=== PATIENT | female | born 1990 | race Caucasian/White ===

== ENCOUNTER 2016-08-16 15:04 | Emergency (ER) | payer OTHER ==
[~2016-08-16] VITALS: Ht 160 cm; Wt 103.0 kg
[~2016-08-16 15:04] MED LIST: KLN5 PO; MTR600X PO; OXYC5TAB PO; ZLF50 PO
[2016-08-16 15:08] VITALS: TEMP 36.4; Ht 160 cm; Wt 103.0 kg
[2016-08-16] MEDS ORDERED: OXYCODONE HCL IR 5 MG TAB (IMMEDIATE RELEASE) PO STA (15:59)
[2016-08-16] MEDS ORDERED: ONDANSETRON 4MG OD TAB PO STA (15:59)
--- NOTE | 2016-08-16 16:42 | DIAGNOSTIC IMAGING REPORT ---
HEAD CT NONCONTRAST CT DOSE: 788.63 mGycm HISTORY: Pain THOMSON/facial/neck pain TECHNIQUE: Multiaxial CT images of the head were performed without the use of intravenous contrast. Comparison: None. Findings: The paranasal sinuses and mastoid air cells are clear. The calvarium and skull base are intact. The ventricles and sulci are within normal limits. There is no mass, hematoma, midline shift, or acute infarct. Impression: No acute intracranial abnormality. Electronically signed by: Andrew Cortes M.D. 08/16/2016 4:40 PM
--- NOTE | 2016-08-16 16:47 | DIAGNOSTIC IMAGING REPORT ---
MAXILLOFACIAL CT CT DOSE: 551.90 mGycm HISTORY: Pain THOMSON/facial/neck pain TECHNIQUE: Multiaxial CT images of the maxillofacial region were performed and reformatted in the coronal plane without the use of contrast. COMPARISON: None. FINDINGS: The visualized cervical spine, skull base, pterygoid plates, nasal bones, lamina papyracea, orbital floors, mandible, and zygomatic arches are intact. No fractures. The orbits are unremarkable. IMPRESSION: No fractures within the maxillofacial region. Electronically signed by: Andrew Cortes M.D. 08/16/2016 4:45 PM
--- NOTE | 2016-08-16 16:49 | DIAGNOSTIC IMAGING REPORT ---
CERVICAL SPINE CT CT DOSE: 425.04 mGycm HISTORY: Fall. THOMSON/facial/neck pain TECHNIQUE: Multiaxial CT images of the cervical spine were performed and reformatted in the sagittal and coronal plane without the use of contrast. COMPARISON: Cervical spine CT 09/01/2014. FINDINGS: No fractures. No subluxation. Prevertebral soft tissues and the C1-C2 interval are intact. No pneumothorax. IMPRESSION: No fractures within the cervical spine. Electronically signed by: Babak Frazier M.D. 08/16/2016 4:47 PM
--- NOTE | 2016-08-16 17:42 | DIAGNOSTIC IMAGING REPORT ---
THORACIC SPINE 3 VIEWS HISTORY: Fall. Back pain COMPARISON: None. FINDINGS: There is no fracture. No subluxation. Disc spaces are preserved. Mild dextroscoliosis which could be positional. IMPRESSION: No fracture or subluxation within the thoracic spine. Electronically signed by: Babak Frazier M.D. 08/16/2016 5:40 PM
--- NOTE | 2016-08-16 17:43 | DIAGNOSTIC IMAGING REPORT ---
LUMBAR SPINE 5 VIEWS HISTORY: Back pain COMPARISON: Lumbar spine 05/22/2010. FINDINGS: There is no fracture. No subluxation. Disc spaces are preserved. IMPRESSION: No fracture or subluxation within the lumbar spine. Electronically signed by: Babak Frazier M.D. 08/16/2016 5:41 PM
--- NOTE | 2016-08-16 17:45 | DIAGNOSTIC IMAGING REPORT ---
RIGHT RIBS UNILATERAL WITH PA CHEST CLINICAL HISTORY: R posterior rib pain Right COMPARISON STUDY: Chest 04/15/2016. FINDINGS: The lungs are clear. The heart is normal in size. No pleural effusions. No pneumothorax. No acute rib fractures. IMPRESSION: No acute rib fractures. No pneumothorax. Electronically signed by: Babak Frazier M.D. 08/16/2016 5:43 PM
[2016-08-16] MEDS ORDERED: PROMETHAZINE HCL 25 MG TAB PO STA (18:21)
[2016-08-16] MEDS ORDERED: TRAMADOL HCL 50 MG TAB PO STA (18:21)
[2016-08-16] MEDS ORDERED: TRAM-10 PO (18:25)
[2016-08-16] MEDS ORDERED: PROM25TA9 PO (18:25)
[2016-08-16 18:44] VITALS: BP 116/70; PULSE 68; O2SAT 96
--- NOTE | 2016-08-16 19:26 | EMERGENCY ROOM VISIT NOTE ---
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 The patient reports a loss of consciousness, and does not recall anything until she was inside and her was wiping off her face. The patient reports persistent and worsening generalized headache, neck pain and right-sided back pain. She also complains of pain radiating into bilateral thighs. She denies any history of chronic back pain or prior back injuries. The patient denies any paresthesias, numbness or burning of the upper extremities or lower extremities. Tetanus immunization is up-to-date. The patient rates her discomfort an 8 out of 10. Review of Systems HEENT: Reports blurred vision and tinnitus. Denies difficulty swallowing or oral lesions. PULMONARY: Denies cough, shortness of breath, sputum production or hemoptysis. CARDIOVASCULAR: Denies chest pain, palpitations, dyspnea on exertion, orthopnea or peripheral edema. GASTROINTESTINAL: Denies diarrhea, constipation, nausea, vomiting, or abdominal pain. GENITOURINARY: Denies dysuria, frequency, urgency or nocturia. NEUROLOGIC: Denies history of epilepsy, CVA, TIA or chronic headaches. MUSCULOSKELETAL: Denies history of joint tenderness/swelling. SKIN: Denies rashes or lesions. PSYCHIATRIC: Denies history of depression or mental illness. ENDOCRINE: Denies history of diabetes or thyroid disorders. Past Medical/Surgical History Medical Problems: (1) CHRONIC PANCREATITIS (2) Fibromyalgia (3) Migraine (4) Panic attack (5) PERSONAL HISTORY OF URINARY CALCULI (6) REFLUX ESOPHAGITIS (7) Tubal occlusion Surgical Problems: (1) Cholecystectomy (2) H/O dilation and curettage (3) H/O wisdom tooth extraction (4) History of esophagogastroduodenoscopy (EGD) (5) S/P tubal ligation (6) Status post breast reduction Family History FHx: gallbladder disease Kidney stones Social History Smoking Status: Never Smoker Alcohol Use: none Drug Use: none Marital Status: Housing Status: lives with family Occupation Status: employed Current/Historical Medications Scheduled Ranitidine (Zantac), 150 MG PO BID Sertraline Hcl (Zoloft), 200 MG PO DAILY Scheduled PRN Promethazine Hcl (Phenergan), 25 MG PO Q6H PRN for Nausea Tramadol (Ultram), 1-2 TAB PO Q4H PRN for Pain Allergies Coded Allergies: Metronidazole (Verified Allergy, Severe, VOMITING, SOB, 04/15/16) Prednisone (Verified Allergy, Intermediate, HIVES, 04/15/16) Hydrocodone (Verified Adverse Reaction, Intermediate, NIGHTMARES, 04/15/16) Physical Exam Vital Signs Date Time Temp Pulse Resp B/P Pulse Ox O2 Delivery O2 Flow Rate FiO2 08/16/16 18:44 68 116/70 96 08/16/16 15:08 36.4 73 17 148/99 97 Room Air Physical Exam CONSTITUTIONAL: Healthy and well nourished. Alert and oriented X 3 with positive affect. Patient appears in moderate discomfort from her headache. GCS 15. HEENT: Examination shows abrasions to the right forehead and right cheek. She has generalized tenderness to palpation of the right zygomatic arch and periorbital region. No raccoon's eyes or Torres sign, hemotympanum or epistaxis. Pupils equal, round and reactive. EOMs intact without signs of entrapment or obvious discomfort. OROPHARYNX: No obvious dental trauma or other intraoral lacerations. NECK: The patient has generalized tenderness to palpation of the right cervical musculature. She does not have any focal tenderness to the central cervical spine. RESPIRATORY: Clear to auscultation bilaterally with no wheezing, crackles, rhonchi or stridor. Deep breathing does not worsen her discomfort. CARDIOVASCULAR: Regular rate and rhythm with no murmurs, rubs or gallops. GASTROINTESTINAL: Bowel sounds present in all quadrants. Soft and nontender to palpation. MUSCULOSKELETAL: Examination shows generalized tenderness to palpation all away from the right trapezius through the right thoracolumbar paraspinous muscle, right ribs and right buttock. Negative logroll. Negative straight leg raise bilaterally. No tenderness to palpation. Extremities. Distal pulses are intact. INTEGUMENTARY: No rash or other significant dermatologic conditions noted. NEUROLOGIC: No focal neurologic deficits noted. Upper and lower extremities are sensory intact. Medical Decision & Procedures ER Provider Diagnostic Interpretation: My interpretation of thoracolumbar x-rays does not show any evidence for compression fractures or subluxations. My interpretation of right rib x-rays with a PA chest view does not show any obvious acute rib fractures, pneumothorax or other acute intrathoracic findings. Noncontrast CT of the head, cervical spine and facial bones also did not show any acute fractures or intracranial bleed. Radiologist reports were also reviewed. Medications Administered Medications (Trade) Dose Ordered Sig/Chano Route Start Time Stop Time Status Last Admin Dose Admin Oxycodone HCl (Roxicodone Immediate Rel Tab) 5 mg NOW STAT PO 08/16/16 15:59 08/16/16 16:02 DC 08/16/16 16:06 5 MG Ondansetron HCl (Zofran Odt) 4 mg NOW STAT PO 08/16/16 15:59 08/16/16 16:02 DC 08/16/16 16:07 4 MG Tramadol HCl (Ultram Tab) 50 mg ONE STAT PO 08/16/16 18:21 08/16/16 18:22 DC 08/16/16 18:37 50 MG Promethazine HCl (Phenergan Tab) 25 mg NOW STAT PO 08/16/16 18:21 08/16/16 18:22 DC 08/16/16 18:36 25 MG ED Course Patient history and physical exam were performed. Nurse's notes were reviewed. Vital signs were reviewed and were normal. GCS 15. The patient did request some pain for pain, and was administered OxyIR 5 mg and Zofran [address] of the head, facial bones and cervical spine were normal. X- rays of the thoracolumbar spine and right ribs with a PA chest were also normal. The patient was advised of her normal findings. She was complaining of a persistent headache and nausea. She was administered Ultram 50 mg and Phenergan 25 mg, and received prescriptions for both medications. She was encouraged to rest and avoid strenuous activities. A concussion handout was provided. She was encouraged to alternate ibuprofen and Tylenol for additional baseline pain relief. 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 Return to the emergency department for any progressively worsening symptoms. The patient was happy with plan of care, voiced understanding of all discharge instructions, and rated her pain a 4 out of 10 at the conclusion of my exam. Medical Decision Impression Primary Impression: Concussion with loss of consciousness Additional Impressions: Facial abrasion, Back pain, Fall Departure Information Prescriptions Promethazine Hcl (Phenergan) 25 Mg Tab 25 MG PO Q6H Y for Nausea, #20 TAB Prov: Maxi Taveras PA 08/16/16 Tramadol (Ultram) 50 Mg Tab 1-2 TAB PO Q4H Y for Pain, #20 TAB For Initial Treatment Prov: Maxi Taveras PA 08/16/16 Referrals Danelle Pink D.O. (PCP) Patient Instructions A Signature Page, [facility]
[2016-08-16] MEDS ORDERED: ZNTT/150 PO (22:17)
[2016-10-19] MEDS ORDERED: MTR600X PO (14:20)
[2016-10-19] MEDS ORDERED: PRT40 PO (14:20)
[2017-07-15] MEDS ORDERED: SERT1TAB68 PO (16:52)
== END 2016-08-16 18:45 | disposition home or self-care (01) ==
LOC: C.EDB 15:05 → C.EDC 18:45
DX: S06.0X1A Concussion with loss of consciousness of 30 minutes or less, initial encounter (principal); S00.81XA Abrasion of other part of head, initial encounter; W17.89XA Other fall from one level to another, initial encounter; K21.0 Gastro-esophageal reflux disease with esophagitis; M54.9 Dorsalgia, unspecified; M79.7 Fibromyalgia

== ENCOUNTER 2016-10-18 10:58 | Observation (INO) | payer OTHER ==
[~2016-10-18] VITALS: Ht 160 cm; Wt 103.4 kg
[~2016-10-18 10:58] MED LIST changes: -KLN5 PO; -MTR600X PO; -OXYC5TAB PO; +PROM25TA9 PO; +SERT1TAB68 PO; +TRAM-10 PO; -ZLF50 PO; +ZNTT/150 PO
[2016-10-18] MEDS ORDERED: SODIUM CHLORIDE 0.9% 1000ML 1,000 ML IV STA (11:29)
[2016-10-18] MEDS ORDERED: ONDANSETRON INJ 2 MG/ML 2 ML VIAL IV STA (11:29)
[2016-10-18] MEDS ORDERED: MoRPHine SULFATE 10 MG/ML CARP/VIAL IV STA ×2 (11:29→13:32)
[2016-10-18] MEDS ORDERED: DiphenhydrAMINE HCL 50 MG/ML VIAL IV STA (11:29)
[2016-10-18 12:13] LABS: BASO % 0.4 %; BASO ABS # 0.03 K/uL (0-0.2); COMPLETE YES; EOS % 0.8 %; HEMATOCRIT 42.4 % (37-47); IG% 0.1 %; LYMPH % 36.9 %; LYMPH ABS # 2.64 K/uL (1.2-3.4); MEAN CELL VOLUME 83.3 fL (80-100); MEAN CORPUSCULAR HEMOGLOBIN 28.3 pg (25-34); MEAN PLATELET VOLUME 10.8 fL (7.4-10.4); MONO % 4.5 %; NEUT % 57.3 %; PLATELET COUNT 301 K/uL (130-400); RED BLOOD COUNT 5.09 M/uL (4.2-5.4); WHITE BLOOD COUNT 7.15 K/uL (4.8-10.8)
--- NOTE | 2016-10-18 12:30 | DIAGNOSTIC IMAGING REPORT ---
SINGLE VIEW CHEST CLINICAL HISTORY: Atypical chest pain. FINDINGS: An AP, portable, upright chest radiograph is compared to study dated 04/15/2016. The cardiomediastinal silhouette is unremarkable. The lungs and pleural spaces are clear. No pneumothorax is seen. The bony thorax is grossly intact. IMPRESSION: No active disease in the chest. Electronically signed by: Johnnie Goel M.D. 10/18/2016 12:29 PM Dictated Date/Time: 10/18/2016 12:29 PM
[2016-10-18 12:41] LABS: ALT/SGPT 72 U/L (12-78); BLOOD UREA NITROGEN 6 mg/dl (7-18); BUN/CREATININE RATIO 8.6 (10-20); CALCIUM 8.7 mg/dl (8.5-10.1); CARBON DIOXIDE 19 mmol/L (21-32); CHLORIDE 107 mmol/L (98-107); CREATININE 0.73 mg/dl (0.60-1.20); GLUCOSE 75 mg/dl (70-99); SODIUM 138 mmol/L (136-145)
[2016-10-18] MEDS ORDERED: ACET-1256 PO (12:44)
--- NOTE | 2016-10-18 12:46 | DIAGNOSTIC IMAGING REPORT ---
HEAD CT NONCONTRAST CT DOSE: 614.27 mGy.cm HISTORY: Headache. Evaluate for hemorrhage or pathology TECHNIQUE: Multiaxial CT images of the head were performed without the use of intravenous contrast. Automated exposure control was utilized for this study. Comparison: Head CT 08/16/2016. Findings: The paranasal sinuses and mastoid air cells are clear. The calvarium and skull base are intact. The ventricles and sulci are within normal limits. There is no mass, hematoma, midline shift, or acute infarct. Impression: No acute intracranial abnormality. Electronically signed by: Babak Frazier M.D. 10/18/2016 12:45 PM Dictated Date/Time: 10/18/2016 12:41 PM
[2016-10-18 13:01] LABS: ALKALINE PHOSPHATASE 172 U/L (45-117)
[2016-10-18] MEDS ORDERED: KETOROLAC TROMETHAMINE 30 MG/ML VIAL IV STA (13:23)
[2016-10-18 13:24] LABS: POTASSIUM 4.2 mmol/L (3.5-5.1)
[2016-10-18 13:32] LABS: AST/SGOT 65 U/L (15-37)
[2016-10-18 13:56] LABS: LYME DISEASE AB IGG NEG (NEG); LYME DISEASE AB IGM NEG (NEG)
[2016-10-18 14:37] VITALS: O2SAT 96; Ht 160 cm; Wt 103.4 kg
[2016-10-18] MEDS ORDERED: ONDANSETRON INJ 2 MG/ML 2 ML VIAL IV PRN (14:45)
[2016-10-18] MEDS ORDERED: ACETAMINOPHEN 325 MG TAB PO PRN (14:45)
[2016-10-18] MEDS ORDERED: IV FLUIDS COMPLETED PRN (15:00)
[2016-10-18] MEDS ORDERED: IBUP1CAP9 PO (15:38)
[2016-10-18] MEDS ORDERED: NRN100 PO (15:39)
[2016-10-18 15:42] VITALS: O2SAT 96
[2016-10-18] MEDS ORDERED: GABAPENTIN 100 MG CAP PO PRN (15:45)
[2016-10-18] MEDS ORDERED: SUMATRIPTAN SUCCINATE 6 MG/0.5 ML VIAL SQ PRN (15:45)
[2016-10-18] MEDS ORDERED: PANTOprazole INJ 40 MG in SYRINGE 0 ML IV STA (15:49)
[2016-10-18] MEDS ORDERED: SUMATRIPTAN SUCCINATE 6 MG/0.5 ML VIAL SQ STA (15:50)
[2016-10-18] MEDS: SODIUM CHLORIDE 0.9% 1000ML 1,000 ML IV SCH (15:58)
--- NOTE | 2016-10-18 16:12 | History and Physical ---
History & Physical Date & Time of Service: Oct 18, 2016 at 15:40 Chief Complaint: Sandritae Primary Care Physician: Danelle Pink D.O. History of Present Illness Source: patient, clinic records This is a 26 y/o female with PMH of migraines, fibromyalgia, anxiety, who presents to the ED with intractable migraine headache. Pt reports onset of THOMSON 2 days ago. She states it felt like her previous migraines except the onset was more sudden. She describes pressure behind her eyes radiating to the occipital area. She reports associated aura of flushing, visual floaters, diplopia, and tired feeling. She reports photophobia, phonophobia, nausea, multiple episodes of vomiting, poor PO intake. She rates pain 8/10 and did not improve with Tylenol and ibuprofen at home. She was given morphine total of 14 mg and Toradol in ER without improvement. Patient reports hx of chronic migraines 1-2x per month lasting 1 week. She reports previously being on Imitrex injections for 3 years which initially worked but was stopped after it was no longer working. Pt has not been seen by a neurologist. She reports having MRI at some point in the past. Pt believes current episode is triggered by anxiety and weather change. She reports a lot of stressors at home including problems with her house. She reports panic attack in April 2016 after her tubal ligation and was seen by psychiatry and set up with a counselor at [facility]. She was placed on Zoloft which is currently at 200 mg a day. The Zoloft helped but still having significant anxiety. Denies suicidal ideation. Pt also reports chest pain central non-radiating described as heaviness which is constant since last night. She reports having similar pain in the past associated with migraine. She notes chronic palpitations associated with anxiety. She notes chronic short term memory issues. 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 She notes dry cough for 1-2 months. States reflux is uncontrolled on Zantac. Denies focal weakness or numbness, fevers, nasal congestion, SOB, DESAI, abdominal pain, change in chronic diarrhea), dysuria, frequency. Past Medical/Surgical History Medical Problems: (1) CHRONIC PANCREATITIS Status: Chronic (2) Fibromyalgia Status: Chronic (3) Migraine Status: Chronic (4) AVE on CPAP Status: Chronic (5) Panic attack Status: Chronic (6) PERSONAL HISTORY OF URINARY CALCULI Status: Chronic (7) REFLUX ESOPHAGITIS Status: Chronic Surgical Problems: (1) Cholecystectomy Status: Chronic (2) H/O dilation and curettage Status: Chronic (3) H/O wisdom tooth extraction Status: Chronic (4) History of esophagogastroduodenoscopy (EGD) Status: Chronic (5) S/P tubal ligation Status: Chronic (6) Status post breast reduction Status: Chronic Family History Blood clots SISTER FH: suicide FATHER FHx: gallbladder disease Kidney stones Social History Smoking Status: Never Smoker Alcohol Use: none Drug Use: none Marital Status: Housing status: lives with family Occupational Status: employed Immunizations History of Influenza Vaccine: No History of Tetanus Vaccine?: No History of Pneumococcal: No History of Hepatitis B Vaccine: Yes Multi-Drug Resistant Organisms History of MDRO: No Allergies Coded Allergies: Metronidazole (Verified Allergy, Severe, VOMITING, SOB, 10/18/16) Prednisone (Verified Allergy, Intermediate, HIVES, 10/18/16) Hydrocodone (Verified Adverse Reaction, Intermediate, NIGHTMARES, 10/18/16) Home Medications Scheduled Ranitidine (Zantac), 150 MG PO BID Sertraline Hcl (Zoloft), 100 MG PO BID Scheduled PRN Acetaminophen (Tylenol), 1,000 MG PO UD PRN for Pain Gabapentin (Gabapentin), 100 MG PO TID PRN for Pain Ibuprofen (Ibuprofen), 200 MG PO UD PRN for Pain Review of Systems Ten point ROS performed with pertinent positives and negatives noted in HPI. Physical Exam Vital Signs Date Time Temp Pulse Resp B/P Pulse Ox O2 Delivery O2 Flow Rate FiO2 10/18/16 14:37 96 Room Air 10/18/16 13:59 10/18/16 13:47 87 17 132/79 96 Room Air 75 138/97 77 115/103 10/18/16 12:17 72 18 125/89 97 Room Air 10/18/16 12:12 74 10/18/16 11:01 36.9 67 18 120/79 100 Room Air General Appearance: no apparent distress, + obese, + pertinent finding (alert cooperative 26 y/o female, anxious and tearful, appears uncomfortable due to headache) Head: normocephalic, atraumatic Eyes: normal inspection, PERRL, EOMI ENT: hearing grossly normal, pharynx normal, + pertinent finding (sinuses nontender) Neck: supple, + pertinent finding (no meningial sign on exam) Respiratory/Chest: lungs clear, normal breath sounds, no respiratory distress Cardiovascular: regular rate, rhythm, no murmur Abdomen/GI: normal bowel sounds, non tender, soft Extremities/Musculoskelatal: no calf tenderness, no pedal edema Neurologic/Psych: health information specialist II-XII nml as tested, no motor/sensory deficits, alert, oriented x 3, + pertinent finding (anxious, tearful) Skin: normal color, warm/dry Diagnostics Laboratory Results Results Past 24 Hours Test 10/18/16 11:45 10/18/16 11:58 10/18/16 12:06 10/18/16 12:55 Range/Units Influenza Type A Antigen Neg for Influ A NEG Influenza Type B Antigen Neg for Influ B NEG White Blood Count 7.15 4.8-10.8 K/uL Red Blood Count 5.09 4.2-5.4 M/uL Hemoglobin 14.4 12.0-16.0 g/dL Hematocrit 42.4 37-47 % Mean Corpuscular Volume 83.3 80-100 fL Mean Corpuscular Hemoglobin 28.3 25-34 pg Mean Corpuscular Hemoglobin Concent 34.0 32-36 g/dl Platelet Count 301 130-400 K/uL Mean Platelet Volume 10.8 7.4-10.4 fL Neutrophils (%) (Auto) 57.3 % Lymphocytes (%) (Auto) 36.9 % Monocytes (%) (Auto) 4.5 % Eosinophils (%) (Auto) 0.8 % Basophils (%) (Auto) 0.4 % Neutrophils # (Auto) 4.09 1.4-6.5 K/uL Lymphocytes # (Auto) 2.64 1.2-3.4 K/uL Monocytes # (Auto) 0.32 0.11-0.59 K/uL Eosinophils # (Auto) 0.06 0-0.5 K/uL Basophils # (Auto) 0.03 0-0.2 K/uL RDW Standard Deviation 42.9 36.4-46.3 fL RDW Coefficient of Variation 14.1 11.5-14.5 % Immature Granulocyte % (Auto) 0.1 % Immature Granulocyte # (Auto) 0.01 0.00-0.02 K/uL Erythrocyte Sedimentation Rate 14 0-21 mm/hr Sodium Level 138 136-145 mmol/L Potassium Level 4.2 3.5-5.1 mmol/L Chloride Level 107 98-107 mmol/L Carbon Dioxide Level 19 21-32 mmol/L Anion Gap 12.0 3-11 mmol/L Blood Urea Nitrogen 6 7-18 mg/dl Creatinine 0.73 0.60-1.20 mg/dl Est Creatinine Clear Calc Drug Dose 133.0 ml/min Estimated GFR () 130.8 Estimated GFR (Non- 112.9 BUN/Creatinine Ratio 8.6 10-20 Random Glucose 75 70-99 mg/dl Calcium Level 8.7 8.5-10.1 mg/dl Total Bilirubin 0.5 0.2-1 mg/dl Direct Bilirubin < 0.1 0-0.2 mg/dl Aspartate Amino Transf (AST/SGOT) 65 15-37 U/L Alanine Aminotransferase (ALT/SGPT) 72 12-78 U/L Alkaline Phosphatase 172 45-117 U/L Total Creatine Kinase 52 26-192 U/L Creatine Kinase MB < 0.5 0.5-3.6 ng/ml Creatine Kinase MB Ratio 0-3.0 Total Protein 7.7 6.4-8.2 gm/dl Albumin 3.7 3.4-5.0 gm/dl Lipase 144 73-393 U/L Bedside D-Dimer 346 0-450 ng/mlFEU Bedside Troponin I 0.000 0-0.045 ng/ml Lyme Disease IgG Antibody NEG NEG Lyme Disease IgM Antibody NEG NEG Diagnostic Radiology HEAD CT NONCONTRAST CT DOSE: 614.27 mGy.cm HISTORY: Headache. Evaluate for hemorrhage or pathology TECHNIQUE: Multiaxial CT images of the head were performed without the use of intravenous contrast. Automated exposure control was utilized for this study. Comparison: Head CT 08/16/2016. Findings: The paranasal sinuses and mastoid air cells are clear. The calvarium and skull base are intact. The ventricles and sulci are within normal limits. There is no mass, hematoma, midline shift, or acute infarct. Impression: No acute intracranial abnormality. SINGLE VIEW CHEST CLINICAL HISTORY: Atypical chest pain. FINDINGS: An AP, portable, upright chest radiograph is compared to study dated 04/15/2016. The cardiomediastinal silhouette is unremarkable. The lungs and pleural spaces are clear. No pneumothorax is seen. The bony thorax is grossly intact. IMPRESSION: No active disease in the chest. EKG NSR, 63 bpm, no ST or T wave abnormality Impression Assessment and Plan INTRACTABLE MIGRAINE CT head- no acute findings No improvement with morphine and Toradol in ER Consult neurology; d/w Lizzy Lou; appreciate input Check MRI brain- WNL Not able to give IV steroids due to prednisone allergy of hives Avoid Topamax due to hx of kidney stone Will try sumatriptan injection; may have second dose 1 hour later if no relief PRN ibuprofen, Tylenol, Zofran Consult pain management ATYPICAL CHEST PAIN Associated with anxiety Troponin negative; EKG unremarkable ANXIETY Uncontrolled Denies suicidal ideation Continue Zoloft Consult mental health for further recommendations GERD Uncontrolled Continue ranitidine Add PPI AVE Continue CPAP DVT PROPHYLAXIS SCD's FULL CODE Patient seen in collaboration with Dr. Pantoja. Please see her addendum. ADDENDUM: I have seen and examined the patient and have discussed the case with the provider above. I agree with the assessment and plan as stated. Brain MRI was normal. Appreciate Neurology team's assessment of this patient as she will likely need continued care as an outpatient. Imitrex and Ibuprofen ordered PRN. There is a very large somatic manifestation of stress contributing here with multiple ongoing issues at home that provokes anxiety in her to include financial issues from recently needed home repairs, post- anxiety that was severe and is better, but still present after 18 months, severe self-described separation anxiety from her mother, issues with her that are normal but there, a poor self image with difficulty losing weight, etc. We have asked for psych's input as well as she has been on Zoloft 200mg PO daily and speaks regularly with a Wireless Engineer, however, is still quite affected with anxiety. May need to adjust treatment plan. No reported SI. Admitted for pain management overnight. Italia Pantoja DO Hospitalist Level of Care Med/Surg Advanced Directives Existing Living Will: No Existing Power of Primer Boxer: No Resuscitation Status FULL RESUSCITATION VTE Prophylaxis VTE Risk Assessment Done? Y/N: Yes Risk Level: Low Given or contraindicated: Treatment not indicated Social Service Consult None Apply
[2016-10-18 16:33] VITALS: BP 102/68; PULSE 65; TEMP 36.4; O2SAT 97
[2016-10-18] MEDS ORDERED: LORAZEPAM 2 MG/ML 1 ML VIAL IM STA (16:49)
--- NOTE | 2016-10-18 17:15 | PROGRESS NOTE ---
DATE: 10/18/2016 SUBJECTIVE: Yudith is 26 years old who was just admitted to the hospital and will be on Dr. Browning's service. We were called by Sally Howell who was evaluated her in the Emergency Room, she subsequently been admitted to the floor late in the afternoon. Lizzy Lou and I reviewed the case, which indicates long history of migraine, fibromyalgia, anxiety, panic disorder, obstructive sleep apnea, reflux esophagitis, status post cholecystectomy, status post D\T\C and with apparent steroid allergies producing hives. She has been on Neurontin on an as-needed basis for headaches and apparently also has sertraline on board started recently for some panic attacks. She takes ibuprofen as needed for pain, acetaminophen, and ranitidine. ALLERGIES: SHE HAS ALLERGIES TO PREDNISONE, WHICH CAUSES HIVES; HYDROCODONE, WHICH CAUSES NIGHTMARES AND METRONIDAZOLE, WHICH CAUSES SEVERE VOMITING. PAST MEDICAL HISTORY: She also has a history of a renal stone. CAT scan has been negative. Exam has not shown much, but she appears to possibly be in some status migrainosis or at least must appear ill enough to warrant hospitalization for pain management. Triptans are going to be used, but at this point because of the change in the headache, we are going to recommend she have an MRI scan and will assess her again tomorrow. It is possible that she may need some valproic acid. Topamax seems to be off the table, Neurontin does not seem tobeworking although the way she is taking it is unusual and overall I think we are just going to have to reassess things tomorrow to see how things play out overnight. Frst we have to be sure this is not a new structural issue, which I doubt. Again, we will provide more complete evaluation and recommendations tomorrow. DINORAH
[2016-10-18] MEDS ORDERED: GADAVIST IV PRN (18:15)
--- NOTE | 2016-10-18 18:24 | DIAGNOSTIC IMAGING REPORT ---
MRI OF THE BRAIN WITHOUT AND WITH IV CONTRAST CLINICAL HISTORY: headache r/o intracranial abnormality mental status change COMPARISON STUDY: No previous studies for comparison. TECHNIQUE: Utilizing a 1.5 Ankita magnet and dedicated coil, multiplanar, multiecho imaging of the brain was performed pre and postcontrast administration. IV administration of 8 mL of Gadavist contrast was uneventful. FINDINGS: Diffusion-weighted images show no acute ischemic process. Signal characteristics are unremarkable throughout. No evidence for abnormal postcontrast enhancement. The ventricular system is midline. Internal artery canals are unremarkable. Sella and parasellar regions are unremarkable. IMPRESSION: Normal study. Electronically signed by: Andrew Cortes M.D. 10/18/2016 6:23 PM Dictated Date/Time: 10/18/2016 6:18 PM
[2016-10-18] MEDS: SERTRALINE HCL 100 MG TAB PO SCH (19:54)
[2016-10-18] MEDS: RANITIDINE HCL 150 MG TAB PO SCH (19:54)
[2016-10-18] MEDS: IBUPROFEN 600 MG TAB PO PRN (19:56)
[2016-10-18] MEDS ORDERED: TOPIRAMATE 50 MG TAB PO SCH (21:00)
--- NOTE | 2016-10-18 21:34 | EMERGENCY ROOM VISIT NOTE ---
ED Visit Note First contact with patient: 11:04 CHIEF COMPLAINT: Migraine headache and chest pain. HISTORY OF PRESENT ILLNESS: Ms. Theodore is a 26year-old white female who ambulates into the ED accompanied by her complaining of a migraine headache and chest pain. She reports a acute onset of a severe migraine headache that started approximately 36 hours ago. The pain is constant and increasing in severity. This is the worst headache of the life, but similar to her previous migraines except for the abrupt onset. 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 Currently she describes the headache as a pressure sensation/pain in the behind the eyes. She rates the pain a 8/10. The pain is radiating posteriorly in the occipital area and then down the neck. She rates her discomfort 8/10. She reports taking ibuprofen, Tylenol and a prescribed unspecified migraine medicine prescribed by her family doctor without relief. There is been associated generalized body aches, light sensitivity, floaters, double vision, sensations of feeling hot and diaphoresis, nausea and vomiting, lightheadedness with and without head movement, body tremors and thoracic back pain; she reports the vision changes and the nausea/vomiting are normal for her migraine headaches. Additionally she reports that over the last few days she seems to have poor memory in that she goes to work and comes home but does not remember going to work, she dresses her daughter for school and does not remember what she is wearing. Additionally she is complaining of chest pain that started last evening approximately 14 hours ago. Since that time her pain has been constant. She describes her discomfort as if someone is sitting on her chest. She rates her discomfort 4/10. Pain is nonradiating. She has not taken any specific medications for this prior to arrival at the hospital. Associated with her pain she reports she has been feeling like her heart is racing and intermittently skipping beats, lower extremity cramping. She denies martha fevers, skin eruptions, skin color changes, neck stiffness, upper respiratory tract symptoms, cough, wheezing, orthopnea, dependent edema, previous clots, claudication, recent surgery/inactivity/extended travel, tobacco and estrogen use, abdominal pain, diarrhea, constipation, rectal bleeding, black/tarry stools, urinary symptoms, flank pain, hematuria, vaginal bleeding, vaginal discharge. REVIEW OF SYSTEMS: All body systems were reviewed with the patient and were found to be negative unless noted above otherwise. PAST MEDICAL HISTORY: Migraine headaches, GERD, hiatal hernia, gallbladder disease, fibromyalgia, status post breast reduction, tubal ligation and cholecystectomy. CURRENT MEDICATIONS: ALLERGIES TO MEDICATIONS: Vicodin, Flagyl, prednisone. SOCIAL HISTORY: Patient is currently employed; she feels safe in her home environment; she denies tobacco and alcohol use. PHYSICAL EXAM: Vital Signs: Date Time Temp Pulse Resp B/P Pulse Ox O2 Delivery O2 Flow Rate FiO2 10/18/16 14:37 96 Room Air 10/18/16 13:59 10/18/16 13:47 87 17 132/79 96 Room Air 75 138/97 77 115/103 10/18/16 12:17 72 18 125/89 97 Room Air 10/18/16 12:12 74 10/18/16 11:01 36.9 67 18 120/79 100 Room Air GENERAL: 26 year-old white female in moderate distress due to pain, nontoxic- appearing, afebrile and hemodynamically stable. NEUROLOGIC: Awake, alert and oriented to person place and time. Answering questions appropriately and following commands. Cranial nerves II-XII grossly intact. No focal neurologic deficits noted. Romberg test negative. Pronator drift test negative. Normal heel ruffin test. Normal rapidly any movements of the hands. Able to spell backwards but refuses to count backwards. Good short- term and long-term recall. SKIN: Warm, dry and pink. No rashes, lesions or soft tissue trauma noted. HEENT: Normocephalic, atraumatic. Skull: No bony tenderness, swelling or ecchymosis. No raccoon's eyes or garcia signs. No drainage in the ears and air ; no hemotympanum. No tenderness or erythema over the frontal or maxillary sinuses. PERRLA. EOMI without nystagmus. Funduscopic examination is unremarkable with a normal-appearing optic disc and no signs of increased intracranial pressure. Sclera is white and conjunctiva pink without drainage. No nasal drainage or audible congestion. Oral cavity is moist and pink. No signs of obvious dental disease. Airway is patent. Speech is clear and normal. No JVD. Trachea midline. BACK: No tenderness over the cervical, thoracic or lumbar bony spine. No tenderness or palpable spasm throughout the paraspinous muscles. Full range of motion of cervical spine in flexion and extension. No meningeal symptoms or nuchal rigidity. CHEST: Lungs are clear to auscultation and equal bilaterally with symmetrical chest wall movements. No tenderness, deformity or ecchymosis of the chest wall. No increased respiratory effort or rate. HEART: Regular rate and rhythm with no murmurs, rubs or gallops. ABDOMEN: Soft and nontender with bowel sounds present in all quadrants; no rigidity, rebound tenderness, organomegaly or guarding. EXTREMITIES: No tenderness over the shoulders, elbows, forearms, wrists, hands, hips, knees, lower legs or ankles. Full range of motion of all joints. 4/5 muscle strength in all movements of the shoulder, elbow, forearm, hips, knees and ankles. All distal neurovascular statuses are intact and equal bilaterally. ED COURSE: Patient is assessed as noted above. Laboratory Testing: Test 10/18/16 11:45 10/18/16 11:58 10/18/16 12:06 10/18/16 12:55 Range/Units Influenza Type A Antigen Neg for Influ A NEG Influenza Type B Antigen Neg for Influ B NEG White Blood Count 7.15 4.8-10.8 K/uL Red Blood Count 5.09 4.2-5.4 M/uL Hemoglobin 14.4 12.0-16.0 g/dL Hematocrit 42.4 37-47 % Mean Corpuscular Volume 83.3 80-100 fL Mean Corpuscular Hemoglobin 28.3 25-34 pg Mean Corpuscular Hemoglobin Concent 34.0 32-36 g/dl Platelet Count 301 130-400 K/uL Mean Platelet Volume 10.8 7.4-10.4 fL Neutrophils (%) (Auto) 57.3 % Lymphocytes (%) (Auto) 36.9 % Monocytes (%) (Auto) 4.5 % Eosinophils (%) (Auto) 0.8 % Basophils (%) (Auto) 0.4 % Neutrophils # (Auto) 4.09 1.4-6.5 K/uL Lymphocytes # (Auto) 2.64 1.2-3.4 K/uL Monocytes # (Auto) 0.32 0.11-0.59 K/uL Eosinophils # (Auto) 0.06 0-0.5 K/uL Basophils # (Auto) 0.03 0-0.2 K/uL RDW Standard Deviation 42.9 36.4-46.3 fL RDW Coefficient of Variation 14.1 11.5-14.5 % Immature Granulocyte % (Auto) 0.1 % Immature Granulocyte # (Auto) 0.01 0.00-0.02 K/uL Erythrocyte Sedimentation Rate 14 0-21 mm/hr Sodium Level 138 136-145 mmol/L Potassium Level 4.2 3.5-5.1 mmol/L Chloride Level 107 98-107 mmol/L Carbon Dioxide Level 19 21-32 mmol/L Anion Gap 12.0 3-11 mmol/L Blood Urea Nitrogen 6 7-18 mg/dl Creatinine 0.73 0.60-1.20 mg/dl Est Creatinine Clear Calc Drug Dose 133.0 ml/min Estimated GFR () 130.8 Estimated GFR (Non- 112.9 BUN/Creatinine Ratio 8.6 10-20 Random Glucose 75 70-99 mg/dl Calcium Level 8.7 8.5-10.1 mg/dl Total Bilirubin 0.5 0.2-1 mg/dl Direct Bilirubin < 0.1 0-0.2 mg/dl Aspartate Amino Transf (AST/SGOT) 65 15-37 U/L Alanine Aminotransferase (ALT/SGPT) 72 12-78 U/L Alkaline Phosphatase 172 45-117 U/L Total Creatine Kinase 52 26-192 U/L Creatine Kinase MB < 0.5 0.5-3.6 ng/ml Creatine Kinase MB Ratio 0-3.0 Total Protein 7.7 6.4-8.2 gm/dl Albumin 3.7 3.4-5.0 gm/dl Lipase 144 73-393 U/L Bedside D-Dimer 346 0-450 ng/mlFEU Bedside Troponin I 0.000 0-0.045 ng/ml Lyme Disease IgG Antibody NEG NEG Lyme Disease IgM Antibody NEG NEG Head CT: Was reviewed by myself and read by the radiologist showing no acute cranial abnormalities or skull fractures. Chest X-Rays: Were read by myself and the radiologist showing no acute infiltrates, effusions or pneumothorax. Normal heart silhouette. EKG: Was read by myself and reviewed with Dr. Sanabria; shows normal sinus rhythm with ventricular rate of 63 bpm. Normal axis, normal complexes. No acute ST changes indicating ischemia, or infarction. This was compared to previous from September 2015 in no acute changes were noted. Patient was hydrated with normal saline and she received 4 mg of Zofran IV, a total of 14 mg of morphine IV, 30 mg of Toradol IV, 50 mg of Benadryl IV. Patient was reassessed multiple times to her stay in the emergency department. Patient's case was reviewed with Dr. Sanabria; we agreed on diagnostic approach, treatment, disposition and plan. Patient's case was consulted with case management and the patient hospitalist for medical observation/admission. Patient was educated about today's findings and we discussed possible observation stay; she requested to speak to the hospitalist about an observation stay. CLINICAL IMPRESSION: Migraine headache. Chest pain. DECISION MAKIN-year-old female who presents for evaluation of headache. She is afebrile, well appearing, and hemodynamically stable. She has no signs of a sinus, dental , or ear infection and no evidence of meningismus. She is neurologically intact. I do not suspect a headache to be secondary to a subarachnoid hemorrhage, meningitis, encephalitis, or intracranial mass lesion. Patient also complains of midsternal chest pain. This pain appears mild. I see no signs of acute myocardial infarction on her EKG or testing. No indications for a blood clot or thoracic aneurysm. Chest x-ray did not show any pneumonias or pneumothorax. DISPOSITION and PLAN: Patient was brought in the hospital for observation by the [facility] hospitalist; please see their notes and orders for final disposition and plan.
[2016-10-18 23:35] VITALS: BP 105/71; PULSE 63; TEMP 37; O2SAT 96
[2016-10-19] MEDS: SODIUM CHLORIDE 0.9% 1000ML 1,000 ML IV SCH (02:56)
[2016-10-19 05:45] LABS: HEMATOCRIT 38.8 % (37-47); MEAN CELL VOLUME 82.4 fL (80-100); MEAN CORPUSCULAR HEMOGLOBIN 28.2 pg (25-34); MEAN CORPUSCULAR HGB CONC 34.3 g/dl (32-36); MEAN PLATELET VOLUME 10.4 fL (7.4-10.4); PLATELET COUNT 265 K/uL (130-400); RED BLOOD COUNT 4.71 M/uL (4.2-5.4); WHITE BLOOD COUNT 6.35 K/uL (4.8-10.8)
[2016-10-19 06:15] LABS: CALCIUM 8.2 mg/dl (8.5-10.1); CREATININE 0.69 mg/dl (0.60-1.20); MAGNESIUM 2.1 mg/dl (1.8-2.4); POTASSIUM 4.1 mmol/L (3.5-5.1)
[2016-10-19 08:00] VITALS: BP 120/67; PULSE 75; TEMP 36.8; O2SAT 95
[2016-10-19] MEDS ORDERED: PANTOprazole SOD 40 MG TAB PO SCH (08:00)
[2016-10-19] MEDS: RANITIDINE HCL 150 MG TAB PO SCH (08:34)
[2016-10-19] MEDS: SERTRALINE HCL 100 MG TAB PO SCH (08:34)
[2016-10-19] MEDS: IBUPROFEN 600 MG TAB PO PRN (08:35)
--- NOTE | 2016-10-19 11:11 | Progress Note ---
Medicine Progress Note Date & Time of Visit: Oct 19, 2016 at 10:47. (Sally Howell PA-C) Subjective Patient seen and examined. She states her THOMSON improved to 4/10 and is much more tolerable. She received 2 Imitrex injections and ibuprofen overnight. Nausea/ vomiting have resolved and she tolerated breakfast without issues. No change in chronic loose stool attributed to IBS. She is more calm than yesterday but does admit to anxiety about being in the hospital away from her kids. She met with the psych liason. Denies dizziness, chest pain, SOB, abdominal pain, change in urination. (Sally Howell PA-C) Patient is lying in her bed comfortably in no distress. Denies dull headache without any nausea/vomiting or visual disturbances. (Casey Browning MD) Objective Last 8 Hrs Date Time Temp Pulse Resp B/P Pulse Ox O2 Delivery O2 Flow Rate FiO2 10/19/16 09:07 Room Air 10/19/16 08:00 36.8 75 16 120/67 95 Room Air 10/19/16 08:00 Room Air Physical Exam: General-alert, obese 26 year old female, sitting up in bed, appears comfortable , no distress Eyes-anicteric, IOANA ENT-hearing grossly intact, pharynx normal Neck-supple, trachea midline Lungs-CTA bilaterally, no respiratory distress Heart-RRR, no murmur Abdomen-soft, nontender, normal bowel sounds Extremities-no edema or calf tenderness Neuro-alert, oriented x 3, less anxious than yesterday, grossly nonfocal Laboratory Results: Last 24 Hours Test 10/18/16 11:45 10/18/16 11:58 10/18/16 12:06 10/18/16 12:55 Influenza Type A Antigen Neg for Influ A Influenza Type B Antigen Neg for Influ B White Blood Count 7.15 K/uL Red Blood Count 5.09 M/uL Hemoglobin 14.4 g/dL Hematocrit 42.4 % Mean Corpuscular Volume 83.3 fL Mean Corpuscular Hemoglobin 28.3 pg Mean Corpuscular Hemoglobin Concent 34.0 g/dl Platelet Count 301 K/uL Mean Platelet Volume 10.8 fL Neutrophils (%) (Auto) 57.3 % Lymphocytes (%) (Auto) 36.9 % Monocytes (%) (Auto) 4.5 % Eosinophils (%) (Auto) 0.8 % Basophils (%) (Auto) 0.4 % Neutrophils # (Auto) 4.09 K/uL Lymphocytes # (Auto) 2.64 K/uL Monocytes # (Auto) 0.32 K/uL Eosinophils # (Auto) 0.06 K/uL Basophils # (Auto) 0.03 K/uL RDW Standard Deviation 42.9 fL RDW Coefficient of Variation 14.1 % Immature Granulocyte % (Auto) 0.1 % Immature Granulocyte # (Auto) 0.01 K/uL Erythrocyte Sedimentation Rate 14 mm/hr Sodium Level 138 mmol/L Potassium Level mmol/L 4.2 mmol/L Chloride Level 107 mmol/L Carbon Dioxide Level 19 mmol/L Anion Gap 12.0 mmol/L Blood Urea Nitrogen 6 mg/dl Creatinine 0.73 mg/dl Est Creatinine Clear Calc Drug Dose 133.0 ml/min Estimated GFR () 130.8 Estimated GFR (Non- 112.9 BUN/Creatinine Ratio 8.6 Random Glucose 75 mg/dl Calcium Level 8.7 mg/dl Total Bilirubin 0.5 mg/dl Direct Bilirubin mg/dl < 0.1 mg/dl Aspartate Amino Transf (AST/SGOT) U/L 65 U/L Alanine Aminotransferase (ALT/SGPT) 72 U/L Alkaline Phosphatase 172 U/L Total Creatine Kinase U/L 52 U/L Creatine Kinase MB < 0.5 ng/ml Creatine Kinase MB Ratio Total Protein 7.7 gm/dl Albumin 3.7 gm/dl Lipase 144 U/L Bedside D-Dimer 346 ng/mlFEU Bedside Troponin I 0.000 ng/ml Lyme Disease IgG Antibody NEG Lyme Disease IgM Antibody NEG Test 10/19/16 05:10 White Blood Count 6.35 K/uL Red Blood Count 4.71 M/uL Hemoglobin 13.3 g/dL Hematocrit 38.8 % Mean Corpuscular Volume 82.4 fL Mean Corpuscular Hemoglobin 28.2 pg Mean Corpuscular Hemoglobin Concent 34.3 g/dl RDW Standard Deviation 41.8 fL RDW Coefficient of Variation 13.9 % Platelet Count 265 K/uL Mean Platelet Volume 10.4 fL Sodium Level 144 mmol/L Potassium Level 4.1 mmol/L Chloride Level 112 mmol/L Carbon Dioxide Level 23 mmol/L Anion Gap 9.0 mmol/L Blood Urea Nitrogen 5 mg/dl Creatinine 0.69 mg/dl Est Creatinine Clear Calc Drug Dose 140.7 ml/min Estimated GFR () 138.3 Estimated GFR (Non- 119.3 BUN/Creatinine Ratio 7.0 Random Glucose 77 mg/dl Calcium Level 8.2 mg/dl Magnesium Level 2.1 mg/dl (Sally Howell PA-C) Assessment & Plan INTRACTABLE MIGRAINE History of chronic migraines CT head- no acute findings; MRI brain- WNL No improvement with morphine and Toradol in ER Consult neurology; d/w Lizzy Lou; appreciate input Not able to give IV steroids due to prednisone allergy of hives Avoid Topamax due to hx of kidney stone Given 2 Imitrex injections overnight with partial improvement PRN ibuprofen, Tylenol, Zofran Takes gabapentin 100 mg TID PRN at home IVF's discontinued now that she is tolerating PO Neurology and pain management evaluations pending ATYPICAL CHEST PAIN- resolved Associated with anxiety Troponin negative; EKG unremarkable ANXIETY Uncontrolled Denies suicidal ideation Continue Zoloft Mental health consultation pending GERD Continue ranitidine Added PPI AVE Continue CPAP DVT PROPHYLAXIS SCD's FULL CODE DISPOSITION Follows with Dr. Danelle Pink for primary care Patient seen in collaboration with Dr. Browning. Please see his addendum. Current Inpatient Medications: Current Inpatient Medications Medications (Trade) Dose Ordered Sig/Chano Route Start Time Stop Time Status Last Admin Dose Admin Acetaminophen (Tylenol Tab) 650 mg Q4H PRN PO 10/18/16 14:45 11/17/16 14:44 Ondansetron HCl (Zofran Inj) 4 mg Q6H PRN IV 10/18/16 14:45 11/17/16 14:44 Miscellaneous (Iv Fluids Completed) 1 ea PRN PRN N/A 10/18/16 15:00 10/18/17 14:59 Sumatriptan Succinate (Imitrex Sq Inj) 6 mg UD PRN SQ 10/18/16 15:45 11/17/16 15:44 10/19/16 03:12 6 MG Gabapentin (Neurontin Cap) 100 mg TID PRN PO 10/18/16 15:45 11/17/16 15:44 Ranitidine HCl (zANTac TAB) 150 mg BID PO 10/18/16 20:00 11/17/16 20:59 10/19/16 08:34 150 MG Sertraline HCl (Zoloft Tab) 100 mg BID PO 10/18/16 20:00 11/17/16 20:59 10/19/16 08:34 100 MG Pantoprazole Sodium 40 mg 40 mg QAM PO 10/19/16 08:00 11/18/16 08:59 10/19/16 08:34 40 MG Sodium Chloride (Nss 1000ml) 1,000 ml @ 100 mls/hr Q10H IV 10/18/16 15:45 11/17/16 15:44 10/19/16 02:56 100 MLS/HR Gadobutrol (Gadavist) 10 mmol UD PRN IV 10/18/16 18:15 10/22/16 18:14 Ibuprofen (Motrin Tab) 600 mg Q6 PRN PO 10/18/16 19:15 11/17/16 19:14 10/19/16 08:35 600 MG (Sally Howell, PAMickieC) Attending Note Patient is clinically & hemodynamically doing well. Reviewed the Neurology input. She will be discharged later today. Needs to follow up with Neurology and Psychiatry as outpatient after discharge. Answered all her questions. Casey Browning MD (Casey Browning MD)
--- NOTE | 2016-10-19 13:20 | Neurology Consultation ---
Neurology Consultation Date of Consultation: Oct 19, 2016. Attending Physician: Casey Browning MD Primary Care Physician: Danelle Pink D.O. Reason for Consultation: intractable migraine History of Present Illness Yudith is a 26 year old female with PMH of migraines, fibromyalgia, anxiety, who presents to the ED with intractable migraine headache. She had a 2 day history of headache it was like her previous migraines except the onset was more sudden. She describes pressure behind her eyes radiating to the occipital area. The headache like her migraines are accompanied by photophobia, phonophobia, nausea, multiple episodes of vomiting, poor PO intake. She was given morphine total of 14 mg and Toradol in ER without improvement. She has a history of chronic migraines 1-2x per month lasting 1 week. She reports previously being on Imitrex injections for 3 years which initially worked but was stopped after it was no longer working. She does not see a neurologist. She think the problem is the stress at home. She reports panic attack in April 2016 after her tubal ligation and was seen by psychiatry and set up with a counselor at [facility]. She was placed on Zoloft which is currently at 200 mg a day. Denies suicidal or homicidal ideation. She had some chest heaviness which she gets when she has a migraine but that has all resolved. She is on gabapentin for mood but has taken it PRN. denies CP, SOB, abdominal pain, numbness, tingling, falls one side weakness, vision changes, +kidney stones in past, currently has a dull headache. Past Medical/Surgical History Medical Problems: (1) Diarrhea Status: Acute (2) Fall Status: Acute (3) Lower abdominal pain Status: Acute (4) Nausea and vomiting Status: Acute Social History Smoking Status: Never smoker Alcohol Use: none Drug Use: none Marital Status: Housing Status: lives with family Occupation Status: employed Allergies Coded Allergies: Metronidazole (Verified Allergy, Severe, VOMITING, SOB, 10/18/16) Prednisone (Verified Allergy, Intermediate, HIVES, 10/18/16) Hydrocodone (Verified Adverse Reaction, Intermediate, NIGHTMARES, 10/18/16) Current Inpatient Medications Current Inpatient Medications Medications (Trade) Dose Ordered Sig/Chano Route Start Time Stop Time Status Last Admin Dose Admin Acetaminophen (Tylenol Tab) 650 mg Q4H PRN PO 10/18/16 14:45 11/17/16 14:44 Ondansetron HCl (Zofran Inj) 4 mg Q6H PRN IV 10/18/16 14:45 11/17/16 14:44 Miscellaneous (Iv Fluids Completed) 1 ea PRN PRN N/A 10/18/16 15:00 10/18/17 14:59 Sumatriptan Succinate (Imitrex Sq Inj) 6 mg UD PRN SQ 10/18/16 15:45 11/17/16 15:44 10/19/16 03:12 6 MG Gabapentin (Neurontin Cap) 100 mg TID PRN PO 10/18/16 15:45 11/17/16 15:44 Ranitidine HCl (zANTac TAB) 150 mg BID PO 10/18/16 20:00 11/17/16 20:59 10/19/16 08:34 150 MG Sertraline HCl (Zoloft Tab) 100 mg BID PO 10/18/16 20:00 11/17/16 20:59 10/19/16 08:34 100 MG Pantoprazole Sodium (Protonix Tab) 40 mg QAM PO 10/19/16 08:00 11/18/16 08:59 10/19/16 08:34 40 MG Gadobutrol (Gadavist) 10 mmol UD PRN IV 10/18/16 18:15 10/22/16 18:14 Ibuprofen (Motrin Tab) 600 mg Q6 PRN PO 10/18/16 19:15 11/17/16 19:14 10/19/16 08:35 600 MG Physical Exam Vital Signs (Past 24 Hrs): Date Time Temp Pulse Resp B/P Pulse Ox O2 Delivery O2 Flow Rate FiO2 10/19/16 09:07 Room Air 10/19/16 08:00 36.8 75 16 120/67 95 Room Air 10/19/16 08:00 Room Air 10/19/16 00:01 Room Air 10/18/16 23:35 37.0 63 18 105/71 96 Room Air 10/18/16 16:33 36.4 65 18 102/68 97 Room Air 10/18/16 16:00 Room Air 10/18/16 15:42 91 16 112/53 96 10/18/16 14:37 96 Room Air 10/18/16 13:59 3/7/17 13:47 87 17 132/79 96 Room Air 75 138/97 77 115/103 Physical Exam: Constitutional: appearance nourished, healthy and normal Ears, Nose, Mouth and Throat: mucous membranes moist, no injection and skin normal, eyes normal Cardiovascular: normal S-1 and S-2 and regular rate and rhythm Respiratory: clear to auscultation (CTA) and no rales, rhonchi or wheeze Musculoskeletal: no peripheral edema and good distal pulses Skin: no stigmata of neurocutaneous disease noted and normal and intact Eyes: extraocular muscles intact (EOMI) and pupils equal, round and reactive to light (PERRL), good vascular pulsations disc flat NEUROLOGIC EXAMINATION: Mental status: Alert and interactive Oriented to full date and location Oriented to person Speech fluent with no evidence of aphasia Cranial Nerves smile eye brow raise symmetric, tongue midline Reflexes: Deep tendon reflexes were symmetrical and graded 2/5. Plantar responses were flexor. Sensory: no deficit to cool touch, vibration or GT proprioception Coordination: finger to nose no tremor Gait/Stance: Posture sitting in bed Motor: Negative for pronator drift of out stretched arms with eyes closed. Strength: biceps triceps hand tableau analyst bilaterally 5/5, hip flex plantar flex ext 5/5 bilaterally Laboratory Results Past 24 Hours: 10/19/16 05:10 10/19/16 05:10 Test 10/19/16 05:10 Red Blood Count 4.71 M/uL (4.2-5.4) Mean Corpuscular Volume 82.4 fL (80-100) Mean Corpuscular Hemoglobin 28.2 pg (25-34) Mean Corpuscular Hemoglobin Concent 34.3 g/dl (32-36) RDW Standard Deviation 41.8 fL (36.4-46.3) RDW Coefficient of Variation 13.9 % (11.5-14.5) Mean Platelet Volume 10.4 fL (7.4-10.4) Anion Gap 9.0 mmol/L (3-11) Est Creatinine Clear Calc Drug Dose 140.7 ml/min Estimated GFR () 138.3 Estimated GFR (Non- 119.3 BUN/Creatinine Ratio 7.0 (10-20) Calcium Level 8.2 mg/dl (8.5-10.1) Magnesium Level 2.1 mg/dl (1.8-2.4) Imaging CT head- no acute abnormalities MRI brain with and without- no acute abnormalities Impression 26 year old female intractable migraine-currently resolving Plan 1. MRI no lesions or structural issues 2. gabapentin 100 mg TID then increase to 200 mg TID if does not cause drowsiness or weigh gain 3. imitrex po prn avoid using more than 3-4 x per month 4. no OTC medication will cause rebound headaches 5. pain mgt for botox injection 6. will see in our clinic 3-4 weeks for medication adjustments I have seen and discussed above patient with Dr Nadeem Jones, neurology Pateint reinier and interviewed imaging reviewed and case discussed with Lizzy Lazo agree with above assessment and plans suspect emergence of a variant migraine and suspect her chronic stable migraine pattern may be changing trial of more sustained neurontin not an unreasonable apprpach as she is already on it will see back in clinic in about thre to four weeks and she will keep track of events their frequency and severity Ok for discharge Nadeem Jones MD
[2016-10-19] MEDS ORDERED: NRN100 PO (13:23)
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
[2016-10-19] MEDS ORDERED: MTR600X PO (14:20)
[2016-10-19] MEDS ORDERED: PRT40 PO (14:20)
--- NOTE | 2016-10-19 14:26 | Discharge Instructions ---
Discharge Instructions Date of Service Oct 19, 2016. Admission Reason for Admission: Headache Behind The Eyes Discharge Discharge Diagnosis / Problem: Acute Migraine Discharge Goals Goal(s): Decrease discomfort, Improve function, Increase independence, Improve disease control, Improve nutritional status, Learn about illness, Diagnostic testing, Therapeutic intervention Activity Recommendations Activity Limitations: resume your previous activity (As Tolerated.) Lifting Limitations: none Exercise/Sports Limitations: none May Resume Sexual Activity: when tolerated Shower/Bathe: no limitations Driving or Machine Use: no limitations . Instructions / Follow-Up Instructions / Follow-Up 1. Take all the medications as directed. 2. Avoid foods as processed foods, wine and cheese etc. which can trigger migraine. Follow up with PCP on 10/25/2016 @ 12.50 PM. Current Hospital Diet Patient's current hospital diet: Regular Diet Discharge Diet Recommended Diet: Regular Diet Pending Studies Studies pending at discharge: no Medical Emergencies . Who to Call and When: Medical Emergencies: If at any time you feel your situation is an emergency, please call 911 immediately. . Non-Emergent Contact Non-Emergency issues call your: Primary Care Provider . . "Provider Documentation" section prepared by Casey Browning. VTE Core Measure Inpt VTE Proph given/why not?: Treatment not indicated
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
[2016-10-19 14:31] VITALS: BP 120/67; PULSE 75; TEMP 36.8; O2SAT 95
[2016-10-19 15:07] VITALS: BP 107/71; PULSE 72; TEMP 36.6; O2SAT 98
--- NOTE | 2016-10-24 18:40 | Pain Management Consultation ---
Pain Management Consultation Date of Consultation Oct 19, 2016. Reason for Consultation Migraine headaches. History Yudith Theodore is a 26-year-old female to [facility] complains of chronic migraine headaches. She reports experiencing headaches at least twice a month, each time lasting possibly 5-7 days. She denies any prodromes or any visual changes. She reports a history of headaches since childhood. She reports that any psychosocial stress orders precipitatesh her headaches as well as long duration. This most recent episode occurred several days ago and reports that is as severe as her previous episodes. She presented to emergency room and after evaluation, was admitted for an analgesic management. As an outpatient, she has been treating her headaches are typical migraine medications as well as Percocet when necessary basis for ordered by her PCP. Headaches are reported to be starting all area radiating into the temporal occipital region. She reports a significant myofascial component once her headache begins. As an outpatient, she is receiving IV analgesics or pain management consultation requested for further input. She also reports a history of anxiety and is currently undergoing significant psychosocial stressors. Past Medical/Surgical History (1) REFLUX ESOPHAGITIS (2) Migraine (3) PERSONAL HISTORY OF URINARY CALCULI (4) CHRONIC PANCREATITIS (5) Fibromyalgia (6) Panic attack (7) Tubal occlusion (8) Back pain (9) AVE on CPAP (10) H/O wisdom tooth extraction (11) H/O dilation and curettage (12) History of esophagogastroduodenoscopy (EGD) (13) Status post breast reduction (14) S/P tubal ligation (15) Cholecystectomy Social / Work History Alcohol Use: none Marital Status: Housing Status: lives with family Occupation: employed Allergies Coded Allergies: Metronidazole (Verified Allergy, Severe, VOMITING, SOB, 10/18/16) Prednisone (Verified Allergy, Intermediate, HIVES, 10/18/16) Hydrocodone (Verified Adverse Reaction, Intermediate, NIGHTMARES, 10/18/16) Medications Current Inpatient Medications Medications (Trade) Dose Ordered Sig/Chano Route Start Time Stop Time Status Last Admin Dose Admin Acetaminophen (Tylenol Tab) 650 mg Q4H PRN PO 10/18/16 14:45 11/17/16 14:44 Ondansetron HCl (Zofran Inj) 4 mg Q6H PRN IV 10/18/16 14:45 11/17/16 14:44 Miscellaneous (Iv Fluids Completed) 1 ea PRN PRN N/A 10/18/16 15:00 10/18/17 14:59 Sumatriptan Succinate (Imitrex Sq Inj) 6 mg UD PRN SQ 10/18/16 15:45 11/17/16 15:44 10/19/16 03:12 6 MG Gabapentin (Neurontin Cap) 100 mg TID PRN PO 10/18/16 15:45 11/17/16 15:44 Ranitidine HCl (zANTac TAB) 150 mg BID PO 10/18/16 20:00 11/17/16 20:59 10/18/16 19:54 150 MG Sertraline HCl (Zoloft Tab) 100 mg BID PO 10/18/16 20:00 11/17/16 20:59 10/18/16 19:54 100 MG Pantoprazole Sodium 40 mg 40 mg QAM PO 10/19/16 08:00 11/18/16 08:59 Sodium Chloride (Nss 1000ml) 1,000 ml @ 100 mls/hr Q10H IV 10/18/16 15:45 11/17/16 15:44 10/19/16 02:56 100 MLS/HR Gadobutrol (Gadavist) 10 mmol UD PRN IV 10/18/16 18:15 10/22/16 18:14 Ibuprofen (Motrin Tab) 600 mg Q6 PRN PO 10/18/16 19:15 11/17/16 19:14 10/18/16 19:56 600 MG Review of Systems Denies any photophobia, neck stiffness, fevers, chills, night sweats. Physical Exam Height & Weight: Height 5 feet, 3.00 inches. Weight 103.400 (Kilograms) 227 (Pounds) Last Vital Signs Documentation Date Time Temp Pulse Resp B/P Pulse Ox O2 Delivery O2 Flow Rate FiO2 10/19/16 00:01 Room Air 10/18/16 23:35 37.0 63 18 105/71 96 Exam: Yudith is alert and oriented. Mood and affect are appropriate. Short-term and long-term memory is intact. Sensorium is clear.She has a flat to depressed affect. She does not. The pain or distress at the present time Head and neck examination demonstrates no evidence of trauma or deformity. Extraocular movements are intact. Pupils react to light and accommodation. Oral and nasal ulcer and moist without lesions. Neurological exam demonstrates intact 2 through 12. She has no focal sensory or motor deficits in lower extremities. Inspection cervical spine demonstrating diffuse myofascial pain posterior cervical spine musculature. Provocative testing the facet joints is unremarkable. Spurlings maneuver is negative. Laboratory / Imaging Results Laboratory Results (Last CBC): 10/19/16 05:10 Imaging: MRI OF THE BRAIN WITHOUT AND WITH IV CONTRAST CLINICAL HISTORY: headache r/o intracranial abnormality mental status change COMPARISON STUDY: No previous studies for comparison. TECHNIQUE: Utilizing a 1.5 Ankita magnet and dedicated coil, multiplanar, multiecho imaging of the brain was performed pre and postcontrast administration. IV administration of 8 mL of Gadavist contrast was uneventful. FINDINGS: Diffusion-weighted images show no acute ischemic process. Signal characteristics are unremarkable throughout. No evidence for abnormal postcontrast enhancement. The ventricular system is midline. Internal artery canals are unremarkable. Sella and parasellar regions are unremarkable. IMPRESSION: Normal study. Electronically signed by: Andrew Cortes M.D. 10/18/2016 6:23 PM Dictated Date/Time: 10/18/2016 6:18 PM [place] Drug Monitoring Program Search Results: patient reviewed within database Opioid Risk Assessment Risk assessment performed, minimal risk identified Assessment 1. Migraine headaches 2. AVE 3. Fibromyalgia Recommendations 1. Continue current inpatient regimen. Botox injections for migrane as outpatient in pain clinic offered. contact information given [employer] Voice [employer]ognition This chart was completed in part utilizing [employer] Voice Recognition Software. Random word insertions, pronoun errors, and incomplete sentences are an occasional consequence of this system due to software limitations and ambient noise. Any questions or concerns about the content, text or information contained within the body of this dictation should be directly addressed to the provider for clarification.
== END 2016-10-19 15:43 | disposition home or self-care (01) ==
LOC: ENRESERVDT → ENRESERVTM → C.EDB 10:59 → C.4E 14:45
PROVIDERS: ADMIT Hospitalist; ATTEND Emergency Medicine
DX: G43.919 Migraine, unspecified, intractable, without status migrainosus (principal); F41.1 Generalized anxiety disorder; F41.0 Panic disorder [episodic paroxysmal anxiety]; K21.9 Gastro-esophageal reflux disease without esophagitis; G47.33 Obstructive sleep apnea (adult) (pediatric); E66.9 Obesity, unspecified; Z79.899 Other long term (current) drug therapy; Z87.442 Personal history of urinary calculi; Z68.41 Body mass index [BMI] 40.0-44.9, adult; Z88.8 Allergy status to other drugs, medicaments and biological substances; Z88.5 Allergy status to narcotic agent; Z88.3 Allergy status to other anti-infective agents; Z82.49 Family history of ischemic heart disease and other diseases of the circulatory system; Z81.8 Family history of other mental and behavioral disorders; Z84.1 Family history of disorders of kidney and ureter; Z81.1 Family history of alcohol abuse and dependence; Z80.1 Family history of malignant neoplasm of trachea, bronchus and lung

== ENCOUNTER 2017-07-15 21:39 | Emergency (ER) | payer OTHER ==
[~2017-07-15] VITALS: Ht 160 cm; Wt 97.1 kg
[~2017-07-15 21:39] MED LIST changes: +ACET-1256 PO; +MTR600X PO; +NRN100 PO; -PROM25TA9 PO; +PRT40 PO; -TRAM-10 PO; -ZNTT/150 PO
[2017-07-15 21:40] VITALS: TEMP 36.5; Ht 160 cm; Wt 97.1 kg
[2017-07-15] MEDS ORDERED: KETOROLAC TROMETHAMINE 30 MG/ML VIAL IV STA (21:49)
--- NOTE | 2017-07-15 21:59 | EMERGENCY ROOM VISIT NOTE ---
History Report prepared by Scribe: Aga Navarro Under the Supervision of: Dr. Goran Donis D.O. First contact with patient: 21:44 Chief Complaint: FLANK PAIN Stated Complaint: LOWER BACK PAIN History of Present Illness The patient is a 27 year old female who presents to the Emergency Room with complaints of worsening left sided low back pain for the past few days. She rates her discomfort as an 8/10 in severity. The pain does occasionally radiate down her left leg. She denies any pain with breathing but admits to some increased shortness of breath with walking even short distances. She complains of a persistent cough for the past 3 weeks. She denies any issues with urination or moving her bowels. She also admits to a decreased appetite for the past few days. The patient notes she has a history of kidney stones. Source of History: patient Onset: past few days Position: back (lower) Symptom Intensity: 8/10 Timing: worsening Associated Symptoms: + cough, + SOB, No urinary symptoms Review of Systems See HPI for pertinent positives and negatives. A total of ten systems were reviewed and were otherwise negative. Past Medical & Surgical Medical Problems: (1) CHRONIC PANCREATITIS (2) Fibromyalgia (3) Headache behind the eyes (4) Migraine (5) AVE on CPAP (6) Panic attack (7) PERSONAL HISTORY OF URINARY CALCULI (8) REFLUX ESOPHAGITIS (9) Tubal occlusion Surgical Problems: (1) Cholecystectomy (2) H/O dilation and curettage (3) H/O wisdom tooth extraction (4) History of esophagogastroduodenoscopy (EGD) (5) S/P tubal ligation (6) Status post breast reduction Family History Blood clots SISTER FH: suicide FATHER FHx: gallbladder disease Kidney stones Social History Smoking Status: Never Smoker Alcohol Use: none Drug Use: none Marital Status: Housing Status: lives with family Occupation Status: employed Current/Historical Medications Scheduled Omeprazole (Prilosec), 20 MG PO BID Sertraline Hcl (Zoloft), 100 MG PO BID Allergies Coded Allergies: Metronidazole (Verified Allergy, Severe, VOMITING, SOB, 10/18/16) Prednisone (Verified Allergy, Intermediate, HIVES, 10/18/16) Hydrocodone (Verified Adverse Reaction, Intermediate, NIGHTMARES, 10/18/16) Physical Exam Vital Signs Date Time Temp Pulse Resp B/P (MAP) Pulse Ox O2 Delivery O2 Flow Rate FiO2 07/16/17 00:07 72 23 128/70 96 Room Air 07/15/17 22:57 77 19 98/49 98 Room Air 07/15/17 22:21 76 07/15/17 22:13 97 Room Air 07/15/17 21:40 36.5 78 18 129/87 99 Room Air Physical Exam GENERAL: Awake, alert, well-appearing, in no distress HENT: Normocephalic, atraumatic. Oropharynx unremarkable. EYES: Normal conjunctiva. Sclera non-icteric. NECK: Supple. No nuchal rigidity. FROM. No JVD. RESPIRATORY: Clear to auscultation. CARDIAC: Regular rate, normal rhythm. Extremities warm and well perfused. Pulses equal. ABDOMEN: Soft, non-distended. No tenderness to palpation. No rebound or guarding. No masses. RECTAL: Deferred. MUSCULOSKELETAL: Chest examination reveals no tenderness. The back is symmetrical on inspection without obvious abnormality. Mild left lower lateral lumbar tenderness. There is no CVA tenderness to palpation. No joint edema. LOWER EXTREMITIES: Calves are equal size bilaterally and non-tender. No edema. No discoloration. NEURO: Normal sensorium. No sensory or motor deficits noted. SKIN: No rash or jaundice noted. Medical Decision & Procedures ER Provider Diagnostic Interpretation: X ray results as stated below per my interpretation and radiologist interpretation. Other radiology results as stated below per my review and radiologist interpretation CHEST ONE VIEW PORTABLE HISTORY: 27 years-old Female chest pain acute atypical chest pain COMPARISON: Chest radiograph 10/18/2016 TECHNIQUE: Portable AP view of the chest FINDINGS: Cardiomediastinal and hilar silhouettes are within normal limits. No pneumothorax, pleural effusion, focal airspace consolidation or overt pulmonary edema. Bones of the chest appear grossly intact. IMPRESSION: No acute cardiopulmonary process. The above report was generated using voice recognition software. It may contain grammatical, syntax or spelling errors. Electronically signed by: Beck Adams M.D. 07/15/2017 10:[address] ABDOMEN & PELVIS Without Contrast: Cholecystectomy. Splenomegaly. No appendicitis, colitis, diverticulitis or bowel obstruction. No free air or free fluid. No obstructive uropathy. Several small nonobstructing left renal calyceal identified. No other acute disease. Radiologist: Rd Burroughs M.D. Laboratory Results 07/15/17 22:19 Red Blood Count 4.95, Mean Corpuscular Volume 83.8, Mean Corpuscular Hemoglobin 28.1, Mean Corpuscular Hemoglobin Concent 33.5, Mean Platelet Volume 10.6, Neutrophils (%) (Auto) 61.3, Lymphocytes (%) (Auto) 31.9, Monocytes (%) (Auto) 5.4, Eosinophils (%) (Auto) 1.0, Basophils (%) (Auto) 0.2, Neutrophils # (Auto) 7.62, Lymphocytes # (Auto) 3.95, Monocytes # (Auto) 0.67, Eosinophils # (Auto) 0.12, Basophils # (Auto) 0.02 07/15/17 22:19 Test 07/15/17 22:19 07/15/17 22:25 White Blood Count 12.40 K/uL (4.8-10.8) Red Blood Count 4.95 M/uL (4.2-5.4) Hemoglobin 13.9 g/dL (12.0-16.0) Hematocrit 41.5 % (37-47) Mean Corpuscular Volume 83.8 fL (80-100) Mean Corpuscular Hemoglobin 28.1 pg (25-34) Mean Corpuscular Hemoglobin Concent 33.5 g/dl (32-36) Platelet Count 273 K/uL (130-400) Mean Platelet Volume 10.6 fL (7.4-10.4) Neutrophils (%) (Auto) 61.3 % Lymphocytes (%) (Auto) 31.9 % Monocytes (%) (Auto) 5.4 % Eosinophils (%) (Auto) 1.0 % Basophils (%) (Auto) 0.2 % Neutrophils # (Auto) 7.62 K/uL (1.4-6.5) Lymphocytes # (Auto) 3.95 K/uL (1.2-3.4) Monocytes # (Auto) 0.67 K/uL (0.11-0.59) Eosinophils # (Auto) 0.12 K/uL (0-0.5) Basophils # (Auto) 0.02 K/uL (0-0.2) RDW Standard Deviation 42.8 fL (36.4-46.3) RDW Coefficient of Variation 14.1 % (11.5-14.5) Immature Granulocyte % (Auto) 0.2 % Immature Granulocyte # (Auto) 0.02 K/uL (0.00-0.02) Urine Color YELLOW Urine Appearance CLOUDY (CLEAR) Urine pH 6.0 (4.5-7.5) Urine Specific Brethren 1.024 (1.000-1.030) Urine Protein NEG (NEG) Urine Glucose (UA) NEG (NEG) Urine Ketones NEG (NEG) Urine Occult Blood 3+ (NEG) Urine Nitrite NEG (NEG) Urine Bilirubin NEG (NEG) Urine Urobilinogen NEG (NEG) Urine Leukocyte Esterase TRACE (NEG) Urine WBC (Auto) 1-5 /hpf (0-5) Urine RBC (Auto) >30 /hpf (0-4) Urine Hyaline Casts (Auto) 1-5 /lpf (0-5) Urine Epithelial Cells (Auto) >30 /lpf (0-5) Urine Bacteria (Auto) NEG (NEG) Urine Test NEG (NEG) Anion Gap 8.0 mmol/L (3-11) Est Creatinine Clear Calc Drug Dose 120.7 ml/min Estimated GFR () 121.8 Estimated GFR (Non- 105.1 BUN/Creatinine Ratio 11.6 (10-20) Calcium Level 9.4 mg/dl (8.5-10.1) Total Bilirubin 0.2 mg/dl (0.2-1) Aspartate Amino Transf (AST/SGOT) 13 U/L (15-37) Alanine Aminotransferase (ALT/SGPT) 22 U/L (12-78) Alkaline Phosphatase 132 U/L (45-117) Total Protein 8.1 gm/dl (6.4-8.2) Albumin 4.1 gm/dl (3.4-5.0) Globulin 4.0 gm/dl (2.5-4.0) Albumin/Globulin Ratio 1.0 (0.9-2) Bedside D-Dimer 285 ng/mlFEU (0-450) Laboratory results reviewed by me Medications Administered Medications (Trade) Dose Ordered Sig/Chano Route Start Time Stop Time Status Last Admin Dose Admin Ketorolac Tromethamine (Toradol Inj) 30 mg NOW STAT IV 07/15/17 21:49 07/15/17 21:51 DC 07/15/17 22:45 30 MG Tramadol HCl (Ultram Tab) 50 mg NOW STAT PO 07/15/17 23:58 07/15/17 23:59 DC 07/16/17 00:08 50 MG ECG Indication: back/shoulder pain Rate (beats per minute): 70 Rhythm: normal sinus Findings: no acute ischemic change, other (normal intervals, normal axis) ED Course 2144: The patient was evaluated in room B3B. A complete history and physical exam was performed. 2148: Toradol 30 mg IV. 2354: Nursing informed me the patient would like pain medication. I will place orders. 2357: Ultram 50 mg PO. 0020: I reevaluated the patient. She is feeling well and resting. I discussed her results and discharge instructions and she verbalized complete understanding and agreement. Medical Decision The differential diagnoses considered include UTI, pneumonia, bronchitis, musculoskeletal back pain. Resting on repeat examination. Patient's in no significant distress. Patient had blood in her urine however CAT scan was negative for ureterolithiasis. I do not suspect pulmonary embolism do not suspect pneumonia. 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 I confirm that the note above accurately reflects all work, treatment, procedures, and medical decision making performed by me. Departure Information Dispostion Home / Self-Care Referrals Danelle Pink D.O. (PCP) Patient Instructions ED Flank Pain Uncertain Cause, [facility] Additional Instructions F/u with PMD;
[2017-07-15 22:13] VITALS: O2SAT 97
[2017-07-15] MEDS ORDERED: PRLSR20 PO (22:14)
[2017-07-15 22:33] LABS: BASO % 0.2 %; BASO ABS # 0.02 K/uL (0-0.2); COMPLETE YES; HEMATOCRIT 41.5 % (37-47); IG% 0.2 %; LYMPH % 31.9 %; LYMPH ABS # 3.95 K/uL (1.2-3.4); MEAN CELL VOLUME 83.8 fL (80-100); MEAN CORPUSCULAR HEMOGLOBIN 28.1 pg (25-34); MEAN CORPUSCULAR HGB CONC 33.5 g/dl (32-36); MEAN PLATELET VOLUME 10.6 fL (7.4-10.4); MONO % 5.4 %; NEUT % 61.3 %; PLATELET COUNT 273 K/uL (130-400); RED BLOOD COUNT 4.95 M/uL (4.2-5.4)
[2017-07-15 22:45] LABS: URINE APPEARANCE CLOUDY (CLEAR); URINE BILIRUBIN NEG (NEG); URINE COLOR YELLOW; URINE EPITHELIAL CELL AUTO >30 /lpf (0-5); URINE NITRITE NEG (NEG); URINE SPECIFIC GRAVITY 1.024 (1.000-1.030); UROBILINOGEN NEG (NEG)
--- NOTE | 2017-07-15 22:45 | DIAGNOSTIC IMAGING REPORT ---
CHEST ONE VIEW PORTABLE HISTORY: 27 years-old Female chest pain acute atypical chest pain COMPARISON: Chest radiograph 10/18/2016 TECHNIQUE: Portable AP view of the chest FINDINGS: Cardiomediastinal and hilar silhouettes are within normal limits. No pneumothorax, pleural effusion, focal airspace consolidation or overt pulmonary edema. Bones of the chest appear grossly intact. IMPRESSION: No acute cardiopulmonary process. The above report was generated using voice recognition software. It may contain grammatical, syntax or spelling errors. Electronically signed by: Beck Adams M.D. 07/15/2017 10:43 PM Dictated Date/Time: 07/15/2017 10:42 PM
[2017-07-15 22:50] LABS: MANUAL MICROSCOPIC REQUIRED? NO; REVIEW REQ? NO
[2017-07-15 22:54] LABS: BUN/CREATININE RATIO 11.6 (10-20); CALCIUM 9.4 mg/dl (8.5-10.1); CREATININE 0.77 mg/dl (0.60-1.20); POTASSIUM 3.4 mmol/L (3.5-5.1)
[2017-07-15] MEDS ORDERED: TRAMADOL HCL 50 MG TAB PO STA (23:58)
[2017-07-16] MEDS ORDERED: TRAMADOL HCL 50 MG HOME PACK PO ONE (00:30)
[2017-07-16 00:40] VITALS: BP 103/67; PULSE 70; O2SAT 97
--- NOTE | 2017-07-16 07:06 | DIAGNOSTIC IMAGING REPORT ---
CT SCAN OF THE ABDOMEN AND PELVIS WITHOUT IV CONTRAST CLINICAL HISTORY: Left flank pain. COMPARISON STUDY: Abdominal CT scans dated and 12/02/2013. TECHNIQUE: CT scan of the abdomen and pelvis is performed from the lung bases to the proximal femora. Images are reviewed in the axial, sagittal, and coronal planes. IV contrast was not administered for this examination. A dose lowering technique was utilized adhering to the principles of ALARA. CT DOSE: 1582.36 mGy.cm FINDINGS: Lung bases: The heart is normal in size and without pericardial effusion. A fat-containing Bochdalek hernia is seen at the right lung base. Linear scarring versus atelectasis seen at the left lung base. Foci of tree-in-bud nodularity of the left lung base likely represent a mild infectious/inflammatory pneumonitis. No pleural effusion is seen. Liver: The unenhanced liver is enlarged, measuring 20.5 cm in length. The liver is otherwise normal in contour and attenuation. There is no intrahepatic biliary ductal dilatation. Gallbladder: Surgically absent noting clips in the gallbladder fossa. Spleen: The spleen is enlarged, measuring 14.9 cm in length. Pancreas: The unenhanced pancreas is grossly unremarkable. Adrenal glands: Unremarkable. Kidneys: The unenhanced kidneys are normal in size and without hydronephrosis. There are least 2 nonobstructing left renal calculi measuring up to 5 mm. A punctate nonobstructing right renal calculus is seen. No obstructing ureteral stone is identified. There is no evidence of contour deforming renal mass lesion. Abdominal vasculature: The abdominal aorta is normal in course and caliber. Bowel: The small bowel and colon are normal in course and caliber. The appendix is well-visualized and normal. Peritoneum: There is no intraperitoneal free air or abdominal ascites. There is a small fat-containing umbilical hernia. Lymphadenopathy: None. Pelvic viscera: The bladder, uterus, and adnexa are normal as visualized. There are small ovarian follicles. Skeletal structures: No lytic or blastic lesions are seen. Mild sclerotic change is noted in the sacroiliac joints. IMPRESSION: 1. There are no acute infectious or inflammatory findings in the abdomen or pelvis. 2. Findings suggest a mild infectious/inflammatory pneumonitis at the left lung base. Clinical correlation will be required. 3. Nonobstructing left renal calculi. 4. Hepatosplenomegaly. 5. Additional findings as above. Electronically signed by: Johnnie Goel M.D. 07/16/2017 7:04 AM Dictated Date/Time: 07/16/2017 6:59 AM
== END 2017-07-16 00:40 | disposition home or self-care (01) ==
LOC: C.EDB 21:40
DX: M54.5 Low back pain (principal); K21.9 Gastro-esophageal reflux disease without esophagitis; F41.0 Panic disorder [episodic paroxysmal anxiety]; K86.1 Other chronic pancreatitis; M79.7 Fibromyalgia; Z87.442 Personal history of urinary calculi; Z90.49 Acquired absence of other specified parts of digestive tract; Z82.49 Family history of ischemic heart disease and other diseases of the circulatory system; Z81.8 Family history of other mental and behavioral disorders; Z83.79 Family history of other diseases of the digestive system; Z84.1 Family history of disorders of kidney and ureter